=== PATIENT | female | born 2000 | race Caucasian/White ===

== ENCOUNTER 2024-11-19 15:51 | Emergency (ER) | payer OTHER, SELFPAY ==
[2024-11-19 15:57] VITALS: BP 122/79
--- NOTE | 2024-11-19 16:18 | ED.GENMED ---
History of Present Illness
General
Chief Complaint: Blood and Body Fluid Exposure
Source: patient
Exam Limitations: none
Time Seen by Provider: 11/19/24 16:04
Nursing documentation reviewed up to this point in time: agreed with
History of Present Illness
History of Present Illness:
Patient is a 24-year-old female presenting to the emergency department after needlestick injury. 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 Patient states that just prior to arrival in ED she was assisting in
closure of an OR case when she was accidentally stuck in her left fifth digit with a suture needle. She was sent down for blood work.
By my assessment�wound is not actively bleeding. Patient states it was cleaned with Betadine and saline in the OR. Patient states she is fully up-to-date on vaccines. No drug allergies.
Review of Systems
Review of Systems
Allergies reviewed?: Yes
All Other Systems: ROS reviewed and negative except as documented in HPI and ROS
Phy Exam
Physical Exam
Physical Exam:
Vitals: Patient's vital signs are stable. Afebrile
General: Patient is well appearing, no acute distress
Skin: Warm and dry, no rashes or lesions
Head: Normocephalic, atraumatic
Throat: Protecting airway
Neck: Normal ROM, no cervical spine tenderness
Cardiac: Regular rate
Pulm: No apparent respiratory distress
Abdomen: Nondistended
Extremities: Pinpoint vasyl on lateral aspect of left fifth digit near MCP joint. Not actively bleeding. Left upper extremity neurovascular intact. Full range of motion in left digits and hand.
Neuro: Grossly intact
Psychiatric: Normal affect.
Course
Orders/Labs/Results
Orders:
Orders
11/19/24 16:00
Pt has had a significant HIV exposure? Routine
HIV Exposure is significant?: No
11/19/24 16:09
HIV Combo Urgent
Hepatitis B Surface Antibody Urgent
Hepatitis B Surface Antigen Urgent
Hepatitis C Antibody Urgent
Vital Signs
Initial and Last Documented VS:
Initial Vital Signs
Temp Pulse Resp BP Pulse Ox
99 F 57 18 122/79 100
11/19/24 15:57 11/19/24 15:57 11/19/24 15:57 11/19/24 15:57 11/19/24 15:57
Last Documented Vital Signs
Temp Pulse Resp BP Pulse Ox
99 F 57 18 122/79 100
11/19/24 15:57 11/19/24 15:57 11/19/24 15:57 11/19/24 15:57 11/19/24 15:57
MDM/Problems Addressed
Differential Diagnosis Includes:
Not limited to: Needlestick injury, etc.
MDM/Problems Addressed:
24-year-old female presenting after low risk needlestick injury in OR. Source patient is known. Vitals stable. Physical exam as above. Wound was cleansed thoroughly with Betadine and saline in OR and once again with saline in emergency
department. Patient up-to-date on tetanus shot and is fully vaccinated. Hepatitis panel/HIV drawn in emergency department. Discussed prophylactic agents with patient versus waiting for source patient lab results. I would consider this a low risk
injury and given known source patient with attainable blood samples�patient decides to hold on prophylactic treatment pending further test results by source patient. I feel this is a reasonable choice. Patient stable for discharge for emergency
department. Return precautions discussed.
Chronic conditions affecting care:
N/A
Acute Exacerbation and/or Progression of Chronic Illness:
N/A
*Pulse Oximetry
Patient hypoxic: no
*EKG
Interpreted by ED Provider?: NA
*Organ Pipe Finisher Interpretation
Rate: Organ Pipe Finisher- N/A
*Critical Care Note
Total Time (30-74mins, 75-104mins- exclusive of procedures): Not Applicable
ED Attending Note
-
Portions of this chart may have been created with voice recognition software.� Occasional wrong word or��sound alike� substitutions may have occurred due to the inherent limitations of voice recognition software.
Discharge Plan
Departure
Patient Disposition: Home (Routine Discharge)
Date of Disposition: 11/19/24
Time of Disposition: 16:25
Patient with high blood pressure during this ER visit?: No
Condition: Good
Covid-19: Not Applicable
Discharge Problem:
Needle stick injury of finger of left hand
Instructions: Blood or body fluid exposure
Stand Alone Forms: Bl/Fluid Consent/Declination, Blood Body/Fluid Exposure
Activity Restrictions/Additional Instructions:
Return to the emergency department any signs of infection around wound or any other concern
-Keep wound clean and dry. Monitor closely for signs of infection.
-As discussed�we will contact you if any of your blood work comes back positive.
-Follow-up to ensure source patient's blood is also negative.
Monitor your symptoms closely and return to the emergency department with any acute worsening/new symptoms or any other concerns
Interventions
Interventions:
*Risk Screen - Suicide Last Done: 11/19/24 16:37
*General Assessment Last Done: 11/19/24 16:37
*Neglect/Abuse Screening Last Done: 11/19/24 16:37
ED- Fall Risk Assessment Last Done: 11/19/24 16:37
*ED COVID-19 Vaccine History Last Done: 11/19/24 16:37
*Nursing Disposition Last Done: 11/19/24 16:37
ED-EENT Assessment Last Done: 11/19/24 16:37
ED-Skin Assessment Last Done: 11/19/24 16:37
Discharge Date and Time
Discharge Date/Time: 11/19/24 16:49
Print Language: IRANIAN
[2024-11-19 17:44] LABS: HIV Combo Negative (Negative)
[2024-11-19 18:40] LABS: Hepatitis B Surface Antigen Negative (Negative)
[2024-11-19 18:58] LABS: Hepatitis C Antibody Negative (Negative)
[2024-11-19 19:53] LABS: Hepatitis B Surface Antibody Negative
== END 2024-11-19 16:49 | disposition home or self-care (01) ==
LOC: EMR 15:51
PROVIDERS: EMERGENCY PHYSICIAN Emergency Medicine
DX: S61.237A Puncture wound without foreign body of left little finger without damage to nail, initial encounter (principal); W46.0XXA Contact with hypodermic needle, initial encounter; Z77.21 Contact with and (suspected) exposure to potentially hazardous body fluids; Y99.0 Civilian activity done for income or pay
CPT/HCPCS: 99283; 86706; 86803; 87340; 87389